=== PATIENT | male | born 1960 | race Caucasian/White ===

== ENCOUNTER → 2016-09-25 | Outpatient (CLI) | payer MEDICAID, OTHER ==
--- NOTE | 2016-09-25 09:25 | REP ---
Cervical spine age views: There are no comparisons. There is advanced degenerative disc disease at C 03/04, 04/05, and 05/06. There is moderate degenerative disc disease at C6-7. Vertebral body heights and alignment are normal. Prevertebral soft tissues are normal. The facets are normally aligned. There is no listhesis on flexion or extension. The odontoid is obscured by dentition on the odontoid views. There is mild foraminal encroachment from uncinate spurring bilaterally from C3 to C6, likely a consequence of the degenerative disc disease. Impression: Multilevel degenerative disc disease. There is mild bilateral foraminal encroachment from uncinate spurring at the levels of the degenerative disc disease. The odontoid is obscured by dilatation on the odontoid views. No listhesis on flexion or extension. Signed by Prakash Parry MD 09/25/2016 09:17 A
[2016-09-25 09:56] LABS: ALBUMIN 3.8 GM/DL (3.2-5.2); ALBUMIN/GLOBULIN RATIO 1.06 (1.00-1.93); ALKALINE PHOSPHATASE 76 U/L (45-117); ALT/SGPT 30 U/L (12-78); ANION GAP 8 MEQ/L (8-16); AST/SGOT 13 U/L (15-37); BILIRUBIN,TOTAL 0.9 MG/DL (0.2-1.0); BLOOD UREA NITROGEN 15 MG/DL (7-18); CALCIUM LEVEL 9.5 MG/DL (8.5-10.1); CARBON DIOXIDE LEVEL 29 MEQ/L (21-32); CHLORIDE LEVEL 99 MEQ/L (98-107); CHOLESTEROL LEVEL 181 MG/DL (<200); CREATININE FOR GFR 0.82 MG/DL (0.70-1.30); GLOMERULAR FILTRATION RATE > 60.0 (>56); GLUCOSE, FASTING 109 MG/DL (70-105); POTASSIUM SERUM 3.9 MEQ/L (3.5-5.1); SODIUM LEVEL 136 MEQ/L (136-145); TOTAL PROTEIN 7.4 GM/DL (6.4-8.2); TRIGLYCERIDES LEVEL 93 MG/DL (<150)
== END ==
LOC: M LAB 08:06
PROVIDERS: ATTEND Nurse Practitioner Family
DX: M99.01 Segmental and somatic dysfunction of cervical region (principal); I10 Essential (primary) hypertension; M50.31 Other cervical disc degeneration, high cervical region; M50.321 Other cervical disc degeneration at C4-C5 level; M50.322 Other cervical disc degeneration at C5-C6 level; M50.323 Other cervical disc degeneration at C6-C7 level

== ENCOUNTER → 2019-05-16 | Outpatient (CLI) | payer OTHER, MEDICAID ==
--- NOTE | 2019-05-16 10:44 | REP ---
Right hand series: Five views. History: Injury of the right hand. Findings: There is an obliquely oriented fracture of the distal diaphysis of the fifth metacarpal with a approximately 4 mm of override. There is associated soft-tissue swelling. There is moderate osteoarthritis at the first carpometacarpal articulation. Moderate osteoarthritis is seen in the index long and small finger DIP joints as well. Impression: Obliquely oriented overriding fracture of the fifth metacarpal with associated swelling. Osteoarthritic changes. Electronically Signed by Dev Almonte MD 05/16/2019 10:36 A
== END ==
LOC: M LRY 10:15
PROVIDERS: ATTEND Physician Assistant
DX: S62.306A Unspecified fracture of fifth metacarpal bone, right hand, initial encounter for closed fracture (principal); X58.XXXA Exposure to other specified factors, initial encounter; Y92.9 Unspecified place or not applicable; Y93.9 Activity, unspecified; Y99.9 Unspecified external cause status

== ENCOUNTER 2020-05-07 09:07 | Emergency (ER) | payer MEDICAID, OTHER ==
[~2020-05-07] VITALS: Ht 190.5 cm; Wt 94.5 kg
--- NOTE | 2020-05-07 09:40 | REP ---
INDICATION: CVA - Nursing interventions must not delay CT COMPARISON: None. TECHNIQUE: Axial noncontrast images from the skull base to the thoracic inlet with coronal reformations. This CT examination was performed using the following dose reduction techniques: Automated exposure control, adjustment of mA and/or kv according to the patient's size, and use of iterative reconstruction technique. FINDINGS: Age-related atrophy and microvascular ischemic changes are appreciated. The ventricles and sulci are symmetric. Dejesus-white differentiation is maintained. There is no evidence for acute intracranial hemorrhage, mass/mass effect, pathology or infarction. No extra-axial fluid collection. Calvarium is intact. Paranasal sinuses and mastoid air cells are clear. IMPRESSION: Age related atrophy and microvascular ischemic changes. No acute intracranial hemorrhage, infarction, or mass/mass effect. <Electronically signed by Teo Irizarry > 05/07/20 [id number]
[2020-05-07 09:53] LABS: BASO % 0.2 % (0.0-1.0); EOS # 0.1 10^3/uL (0.0-0.5); EOS % 1.2 % (0.0-3.0); HEMOGLOBIN 15.7 g/dl (13.5-17.5); LYMPH % 23.8 % (24.0-44.0); MEAN CORPUSCULAR HEMOGLOBIN 29.2 pg (27.0-33.0); MEAN CORPUSCULAR HGB CONC 32.7 g/dl (32.0-36.5); MEAN CORPUSCULAR VOLUME 89.2 fl (80.0-96.0); MONO # 0.8 10^3/uL (0.0-0.8); MONO % 9.4 % (2.0-8.0); NEUTROPHILS # 5.4 10^3/uL (1.5-8.5); NEUTROPHILS % 65.2 % (36.0-66.0); PLATELET COUNT, AUTOMATED 411 10^3/uL (150-450); RED BLOOD COUNT 5.38 10^6/uL (4.30-6.10); WHITE BLOOD COUNT 8.4 10^3/uL (4.0-10.0)
[2020-05-07 10:04] LABS: INR 0.91; PROTHROMBIN TIME 12.4 SECONDS (12.5-14.3)
[2020-05-07] MEDS ORDERED: ATEN25TA PO (10:07)
[2020-05-07] MEDS ORDERED: HYDR-3490 PO (10:07)
[2020-05-07] MEDS ORDERED: AMLO1TAB25 PO ×2 (10:07)
[2020-05-07 10:25] LABS: BLOOD UREA NITROGEN 15 MG/DL (7-18); CALCIUM LEVEL 9.7 MG/DL (8.8-10.2); CARBON DIOXIDE LEVEL 30 MEQ/L (21-32); CHLORIDE LEVEL 103 MEQ/L (98-107); CK-MB VALUE MASS 4.2 NG/ML (<3.6); CPK CREATINE PHOSPHOKINASE 120 U/L (39-308); CREATININE FOR GFR 1.18 MG/DL (0.70-1.30); GLOMERULAR FILTRATION RATE > 60.0 (>49); GLUCOSE, FASTING 116 MG/DL (70-100); POTASSIUM SERUM 4.3 MEQ/L (3.5-5.1); SODIUM LEVEL 137 MEQ/L (136-145); TROPONIN I 0.98 NG/ML (< 0.10)
[2020-05-07 12:21] LABS: CK-MB VALUE MASS 3.8 NG/ML (<3.6); MB/CK RELATIVE INDEX 3.73 (< OR =4); TROPONIN I 0.83 NG/ML (< 0.10)
[2020-05-07 13:54] LABS: RSV AMPLIFICATION NEGATIVE (NEGATIVE)
[2020-05-07] MEDS ORDERED: MOM 30ML SUSPENSION UDC PO PRN (13:55)
[2020-05-07] MEDS ORDERED: ACETAMINOPHEN TAB 650MG DOSE (2X325MG) PO PRN (13:55)
[2020-05-07] MEDS ORDERED: ASPIRIN 325 MG TAB PO ONE (14:05)
--- NOTE | 2020-05-07 14:22 | IPNPDOC ---
Text Note Date of Service The patient was seen on 05/07/20. NOTE Went to ED to evaluate patient for admission for potential CVA after having pr esented with new facial droop and dysarthria this morning and found to have troponin I of 0.9 with no cardiac symptoms and head CT without any acute findings. He refused to be admitted and will sign out AMA from the ED and follow up with his PCP who will follow up the MRI/MRA he just had and has not been read yet. VS,Fishbone, I+O VS, Fishbone, I+O Laboratory Tests 05/07/20 09:41 Vital Signs Date Time Temp Pulse Resp B/P (MAP) Pulse Ox O2 Delivery O2 Flow Rate FiO2 05/07/20 12:45 119/79 (92) 05/07/20 12:38 64 16 97 Room Air 05/07/20 09:08 97.6 CHARLY PANDYA MD May 07, 2020 14:22
[2020-05-07 14:37] VITALS: BP 135/91
--- NOTE | 2020-05-07 14:45 | REP ---
INDICATION: cva - facial weakness/sensation loss. COMPARISON: Comparison is made with CT study of the brain from earlier today.. TECHNIQUE: Axial and sagittal imaging planes are utilized for T1 and T2-weighted scans. Sequences include spin-echo, fast spin echo, FLAIR, and diffusion weighted sequences. FINDINGS: No bony calvarial lesion is seen. Craniocervical junction and upper cervical cord are normal in appearance. There is no MR evidence of significant paranasal sinus disease. No intraorbital abnormality is seen. There is no evidence of intracranial hemorrhage. No mass or midline shift is observed. There is abnormal T2 hyperintensity in a multifocal distribution involving the right posterior frontal and parietal lobes. There is an area of increased STIR T2 signal intensity in the dejesus matter of the insula on the right as well. These areas demonstrate restricted diffusion on diffusion-weighted scans consistent with acute ischemia. This would be in the distribution of the right middle cerebral artery. Dejesus-white differentiation pattern is otherwise intact. No other abnormal T2 hyperintensity is seen. Minimal small vessel changes are noted. IMPRESSION: Multifocal areas of acute ischemia in the distribution of the right middle cerebral artery as above. No evidence of intracranial hemorrhage seen.. <Electronically signed by Titus Almonte > 05/07/20 [id number]
--- NOTE | 2020-05-07 14:46 | REP ---
INDICATION: cva - facial weakness/sensation loss. COMPARISON: None. TECHNIQUE: 3-D [id number] MR angiography of the brain is acquired in the usual fashion and maximal intensity projection images were generated in rotational format about the vertical and horizontal axes. In addition, source axial T1-weighted images are viewed in cine mode. FINDINGS: The distal vertebral arteries are patent, right dominant in size.. Basilar artery is a little tortuous but widely patent. The posterior cerebral and superior cerebellar vessels are normal and symmetric. The distal internal carotid arteries are unremarkable. Anterior and middle cerebral arteries appear intact. There is no visible poe aneurysm or arteriovenous malformation. IMPRESSION: Unremarkable MR angiography the brain. <Electronically signed by Titus Almonte > 05/07/20 [id number]
--- NOTE | 2020-05-07 15:59 | ECGEPIP ---
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
[2020-05-08] MEDS ORDERED: ENOXAPARIN 40MG/0.4ML SYRINGE (J1650 PER 10MG) SC SCH (09:00)
[2020-05-08 14:09] LABS: Lyme Disease IgG/IgM Antibodie <0.91 ISR (0.00-0.90); Lyme Disease IgM Ab Quantitati <0.80 index (0.00-0.79)
== END 2020-05-07 14:42 | disposition left against medical advice (07) ==
LOC: M ED 09:07 → M ED INP 13:53 → UNDOADMIN 13:53 → UNDODISIN 14:41
DX: R29.810 Facial weakness (principal)

== ENCOUNTER 2020-05-09 07:37 | Observation (INO) | payer OTHER ==
[~2020-05-09] VITALS: Ht 190.5 cm; Wt 88.3 kg
[~2020-05-09 07:37] MED LIST: AMLO1TAB25 PO; ATEN25TA PO; HYDR-3490 PO
[2020-05-09] MEDS ORDERED: ASPI81CH33 PO (07:48)
[2020-05-09 08:46] LABS: BASO % 0.4 % (0.0-1.0); EOS # 0.1 10^3/uL (0.0-0.5); EOS % 1.7 % (0.0-3.0); HEMOGLOBIN 16.7 g/dl (13.5-17.5); LYMPH % 26.5 % (24.0-44.0); MEAN CORPUSCULAR HEMOGLOBIN 28.6 pg (27.0-33.0); MEAN CORPUSCULAR HGB CONC 32.7 g/dl (32.0-36.5); MEAN CORPUSCULAR VOLUME 87.5 fl (80.0-96.0); MONO # 0.8 10^3/uL (0.0-0.8); MONO % 10.6 % (2.0-8.0); NEUTROPHILS # 4.5 10^3/uL (1.5-8.5); NEUTROPHILS % 60.5 % (36.0-66.0); PLATELET COUNT, AUTOMATED 459 10^3/uL (150-450); RED BLOOD COUNT 5.83 10^6/uL (4.30-6.10); WHITE BLOOD COUNT 7.5 10^3/uL (4.0-10.0)
--- NOTE | 2020-05-09 08:46 | REP ---
INDICATION: CVA - Nursing interventions must not delay CT COMPARISON: 05/07/2020 TECHNIQUE: Axial noncontrast images from the skull base to the thoracic inlet with coronal reformations. This CT examination was performed using the following dose reduction techniques: Automated exposure control, adjustment of mA and/or kv according to the patient's size, and use of iterative reconstruction technique. FINDINGS: Age-related atrophy and microvascular ischemic changes are appreciated. The ventricles and sulci are symmetric. Dejesus-white differentiation is maintained. There is no change from prior examination, and specifically no areas of hemorrhage, or increased edema/mass effect. No extra-axial fluid collection. Calvarium is intact. Paranasal sinuses and mastoid air cells are clear. IMPRESSION: 1. Age related atrophy and microvascular ischemic changes. 2. No acute intracranial hemorrhage, infarction, or mass/mass effect identified by CT and findings remain stable compared to 05/07/2020. The areas of acute infarction identified on MRI dated 05/07/2020 do not demonstrate progressive change/evolution by CT evaluation. <Electronically signed by Teo Irizarry > 05/09/20 0800
--- NOTE | 2020-05-09 08:59 | REP ---
INDICATION: CVA COMPARISON: None. TECHNIQUE: Portable AP view of the chest FINDINGS: The mediastinum and cardiac silhouette are within normal limits for portable technique. The lung thompson are clear without acute consolidation, effusion, or pneumothorax. Skeletal structures are intact. IMPRESSION: No acute cardiopulmonary process appreciated. <Electronically signed by Teo Irizarry > 05/09/20 2146
[2020-05-09 09:09] LABS: ALT/SGPT 30 U/L (12-78); BILIRUBIN,DIRECT 0.2 MG/DL (0.0-0.2); BLOOD UREA NITROGEN 17 MG/DL (7-18); CALCIUM LEVEL 9.7 MG/DL (8.8-10.2); CARBON DIOXIDE LEVEL 25 MEQ/L (21-32); CHLORIDE LEVEL 104 MEQ/L (98-107); CPK CREATINE PHOSPHOKINASE 91 U/L (39-308); CREATININE FOR GFR 1.19 MG/DL (0.70-1.30); GLOMERULAR FILTRATION RATE > 60.0 (>49); GLUCOSE, FASTING 122 MG/DL (70-100); POTASSIUM SERUM 4.3 MEQ/L (3.5-5.1); SODIUM LEVEL 137 MEQ/L (136-145); TOTAL PROTEIN 8.2 GM/DL (6.4-8.2); TROPONIN I 0.42 NG/ML (< 0.10)
[2020-05-09 09:19] LABS: INR 0.95; PROTHROMBIN TIME 12.9 SECONDS (12.5-14.3)
[2020-05-09 09:20] LABS: PARTIAL THROMBOPLASTIN TIME 27.2 SECONDS (24.2-38.5)
[2020-05-09 10:19] LABS: RSV AMPLIFICATION NEGATIVE (NEGATIVE)
[2020-05-09] MEDS ORDERED: ASPI-161 PO (10:46)
[2020-05-09 11:23] LABS: CHOLESTEROL LEVEL 204 MG/DL (<200); HDL CHOLESTEROL 50 MG/DL (>40); LDL CHOLESTEROL 131 MG/DL (<100); NON-HDL-C 154 MG/DL; TRIGLYCERIDES LEVEL 117 MG/DL (<150)
[2020-05-09 11:40] VITALS: BP 126/80
--- NOTE | 2020-05-09 12:34 | HPEPDOC ---
General Date of Admission May 09, 2020 at 07:38 Date of Service: May 09, 2020 Chief Complaint The patient is a 59-year-old male admitted with a reason for visit of Atrial Fibrillation and CVA Source: Patient History of Present Illness Mr. Biggs is a 59-year-old male with hypertension and arthritis who presents with dysarthria and left facial droop. Symptoms started initially on 05/07/2020. He woke up in the morning around 5:30 AM. He saw his boss who noted that he had fac ial droop and slurred speech. His boss to come to the ED. While in the ED, he had an MRI which demonstrated multifocal areas of acute ischemia in the right MCA. His MR angiogram of head was negative. CT head was also negative for hemorrhage. EKG at that time was also negative for A. fib and was normal sinus rhythm with heart rate in the 60s. In addition, his troponin was 0.9 which down trended to 0.8. He left AMA incident being admitted. He was called back on 05/08/2020 to return to the ED. He returned to the ED on 05/09/2020. Since then, his symptoms have improved but still present. He still has dysarthria. He still bites is tongue and lip when chewing occasionally. Otherwise he tells me that he is able to walk without problems. In the ED, they repeated the EKG which demonstrated atrial fibrillation. His heart rate ranges between 80-110. When I saw him, despite the dysarthria and left facial droop, his cranial nerves are grossly intact and his muscle strength was 5 out of 5. His chronic paresthesias in his hands. He feels like there is a tight glove over his hands. He does have carpal tunnel syndrome. Examining his fingers, his PIP and DIP appears swollen and inflamed. He does have some lateral deviation of his fingers. He tells me that his parents had crooked hands from arthritis. Denies knowledge of having rheumatoid arthritis, by suspect that he may have rheumatoid arthritis. Otherwise, I reached out to neurology, Dr. Velasco, and discussed the case with him. We'll start patient on anticoagulation today. Patient will be admitted for new onset atrial fibrillation and to complete the workup for CVA. Home Medications Scheduled Amlodipine Besylate (Amlodipine Besylate) 10 Mg Tablet, 10 MG PO DAILY, (Reported) Aspirin (Aspirin EC) 81 Mg Tablet.dr, 81 MG PO DAILY, (Reported) Atenolol (Atenolol) 25 Mg Tablet, 25 MG PO DAILY, (Reported) Hydrochlorothiazide (Hydrochlorothiazide) 25 Mg Tablet, 25 MG PO Q3RD, (Reported) Allergies Coded Allergies: No Known Allergies (Unverified , 05/07/20) Past Medical History Medical History 1. Arthritis 2. Patient reports a history of carpal tunnel bilaterally 3. Degenerative disc disease 4. Right hand fracture and left rib fracture Surgical History 1. Hernia repair Family History Father: History of DC in his 50s Mother: History of cancer Social History * Smoker: former Smoker (He smoked for about 6 years. Quit when he was 20 years old) Alcohol: occationally (About 2-3 beers a day. Last alcohol drink was Wednesday, May 06, 2020) Drugs: marijuana A-FIB/CHADSVASC A-FIB History Current/History of A-Fib/PAF?: Yes Current PO Anticoag Therapy: Yes Age/Risk Factor Scoring CHADSVASC: CHADSVASC Response (Comments) Value Age Risk Factor Age < 65 years old 0 Gender Risk Factor Male 0 Hx of CHF No 0 Hx of HTN Yes 1 Hx of Stroke/TIA/or VTE Yes 2 Hx of Diabetes No 0 Hx of Vascular Disease No 0 Total 3 Treatment Treatment ordered: Apixaban Review of Systems Constitutional: Denies: Chills, Fever Eyes: Denies: Vision change ENT: Denies: Sore Throat Skin: Denies: Rash Pulmonary: Denies: Dyspnea, Cough Cardiovascular: Reports: Chest Pain (sharp chest pain underneath ribs. Comes and goes) Gastrointestinal: Denies: Nausea, Abdominal Pain, Diarrhea Genitourinary: Denies: Dysuria Hematologic: Denies: Bruising Neurological: Reports: Other Symptoms (paresthesias is in hands bilaterally) Psych: Denies: Anxiety, Depression Physical Examination General Exam: Positive: Cooperative Eye Exam: Positive: EOMI; Negative: Sclera icteric ENT Exam: Positive: Atraumatic, Tongue Midline Neck Exam: Positive: Supple Chest Exam: Positive: Clear to auscultation; Negative: Rales, Rhonchi, Wheezing Heart Exam: Positive: Tachycardic, Irregular Rhythm Extremity Exam: Negative: Edema Neuro Exam: Negative: Normal Speech (Slurred speech) Psych Exam: Positive: Mental status NL, Mood NL Vital Signs Vital Signs Date Time Temp Pulse Resp B/P (MAP) Pulse Ox O2 Delivery O2 Flow Rate FiO2 05/09/20 11:40 97.4 91 18 126/80 (95) 99 Room Air Laboratory Data Labs 24H Laboratory Tests 2 05/09/20 08:20: Immature Granulocyte % (Auto) 0.3, Neutrophils (%) (Auto) 60.5, Lymphocytes (%) (Auto) 26.5, Monocytes (%) (Auto) 10.6H, Eosinophils (%) (Auto) 1.7, Basophils (%) (Auto) 0.4, Neutrophils # (Auto) 4.5, Lymphocytes # (Auto) 2.0, Monocytes # (Auto) 0.8, Eosinophils # (Auto) 0.1, Basophils # (Auto) 0.0, Nucleated Red Blood Cells % (auto) 0.0, Prothrombin Time 12.9, Prothromb Time International Ratio 0.95, Activated Partial Thromboplast Time 27.2, Anion Gap 8, Glomerular Filtration Rate > 60.0, Calcium Level 9.7, Total Bilirubin 1.0, Direct Bilirubin 0.2, Aspartate Amino Transf (AST/SGOT) 16, Alanine Aminotransferase (ALT/SGPT) 30, Alkaline Phosphatase 92, Total Creatine Kinase 91, Creatine Kinase MB 2.0, Creatine Kinase MB Relative Index 2.20, Troponin I 0.42#H, Total Protein 8.2, Albumin 4.0, Albumin/Globulin Ratio 1.0, Triglycerides Level 117, Total Cholesterol 204H, LDL Cholesterol 131H, Non-HDL Cholesterol (LDL + VLDL) 154, Total HDL Cholesterol 50, Cholesterol/HDL Ratio 4.080 05/09/20 08:29: Coronavirus (COVID-19)(PCR) NEGATIVE, Influenza Type A (RT-PCR) NEGATIVE, Influenza Type B (RT-PCR) NEGATIVE, Respiratory Syncytial Virus (PCR) NEGATIVE CBC/BMP Laboratory Tests 05/09/20 08:20 Assessment/Plan Mr. Biggs is a 59-year-old male with hypertension and arthritis who presents with dysarthria and left facial droop and found to have a new onset atrial fibrillation. His right multifocal MCA ischemic stroke is most likely from his atrial fibrillation. Discussed case with neurology, will start patient on anticoagulation today. We'll also continue his aspirin and started him on a statin. Otherwise, we'll start patient on rate control medication for his new onset atrial fibrillation. Pending results from echocardiogram and carotid ultrasounds. Plan / VTE VTE Prophylaxis Ordered?: Yes Plan Plan 1. Acute multifocal right MCA stroke Manifested as dysarthria and left-sided facial droop Secondary to atrial fibrillation Continue aspirin Start statin and oral anticoagulation MR angiogram of head is negative. Pending echocardiogram with bubble study and ultrasound carotids Ordered PT and speech therapy. Speech therapy for his dysarthria and biting of her lip and tongue Ordered for lipid panel and HbA1c 2. New-onset atrial fibrillation Pending echocardiogram We'll initiate rate control with metoprolol titrate. We will hold atenolol and hydrochlorothiazide so we may be able to go up on metoprolol as needed Start anticoagulation with apixaban Pending TSH Troponin have been downtrending from 0.9 to 0.42 3. Hypertension Patient is on amlodipine, atenolol, and hydrochlorothiazide at home Blood pressure is very well controlled We will stop Atenolol and hydrochlorothiazide. We will decrease amlodipine from 10 mg once a day to 5 mg once a day. We will start Lopressor. By changing other blood pressure medications, we will have room on increasing Lopressor as needed 4. Arthritis of the hands bilaterally Patient has swelling of his DIP and PIP bilaterally. Parents had history of arthritis with hand deformities Patient may have rheumatoid arthritis. We'll order rheumatoid factor and anti- CCP. We'll order x-ray of hands bilaterally as well 5. DVT prophylaxis On apixaban NATHAN BRO DO May 09, 2020 12:18
[2020-05-09] MEDS ORDERED: ELIQ5TAB PO (12:37)
[2020-05-09] MEDS: METOPROLOL TART 25 MG TABLET PO SCH ×2 (12:54→20:55)
[2020-05-09] MEDS: APIXABAN 5 MG TAB (ELIQUIS) PO SCH ×2 (12:54→20:45)
[2020-05-09 13:17] LABS: HEMOGLOBIN A1c 5.9 %
--- NOTE | 2020-05-09 13:54 | REP ---
INDICATION: R MCA stroke COMPARISON: None. TECHNIQUE: Real-time ultrasound evaluation and duplex Doppler interrogation of the extracranial carotid vasculature is performed. FINDINGS: There is mild plaquing and narrowing in both carotid bulbs extending into the internal and external carotid arteries. Luminal narrowing is less than 50%. There is no evidence of hemodynamically significant stenosis of either internal carotid artery. Normal flow velocities are seen. The vertebral arteries demonstrate normal direction of flow. There is biphasic waveform in the left vertebral artery suggesting possible early subclavian steal. RIGHT LEFT Peak systolic velocity ICA 56 cm/s 81 cm/s End diastolic velocity ICA 25 cm/s 33 cm/s Peak systolic velocity CCA 79 cm/s 72cm/s Peak systolic velocity ECA 76 cm/s 67 cm/s ICA/CCA ratio 0.71 1.3 IMPRESSION: Bilateral luminal narrowing of the internal carotid arteries less than 50%. No evidence of hemodynamically significant stenosis. Biphasic waveform left vertebral artery suggests possible early subclavian steal. <Electronically signed by Prakash Dejesus > 05/09/20 1181
--- NOTE | 2020-05-09 13:56 | REP ---
INDICATION: Pain, arthritis, RA vs OA? COMPARISON: None. TECHNIQUE: AP, lateral, bilateral oblique views right and left hand. FINDINGS: Left hand demonstrates generalized age-related changes along with advanced osteoarthritic findings primarily involving the 2nd and 5th distal interphalangeal joints with subchondral sclerosis, joint space obliteration, marginal spurring/Gull wing deformity. Moderate arthritic changes are also identified involving the 1st digit including carpometacarpal joint. No significant periarticular erosive changes, loose bodies or focal periarticular swelling. No evidence for acute or healed injury. Right hand demonstrates generalized age-related changes along with advanced osteoarthritic findings primarily involving the 2nd, 3rd and 5th distal interphalangeal joints with subchondral sclerosis, joint space obliteration, marginal spurring/Gull wing deformity. Advanced degenerative changes are also identified at the 1st carpometacarpal joint including subchondral sclerosis, joint space narrowing and subtle spurring. Moderate arthritic changes are also identified involving the 1st digit including carpometacarpal joint. No significant periarticular erosive changes, loose bodies or focal periarticular swelling. Evidence for old healed fracture involving the 5th metacarpal bone. IMPRESSION: Bilateral osteoarthritic degenerative changes. <Electronically signed by Teo Irizarry > 05/09/20 [id number]
[2020-05-09 14:00] VITALS: BP 121/82
[2020-05-09] MEDS ORDERED: ATORVASTATIN 20 MG TAB PO SCH (21:00)
[2020-05-09 22:00] VITALS: BP 125/84
--- NOTE | 2020-05-10 03:15 | ECGEPIP ---
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
[2020-05-10 06:00] VITALS: BP 119/90
[2020-05-10 06:50] LABS: HEMATOCRIT 48.7 % (42.0-52.0); HEMOGLOBIN 16.2 g/dl (13.5-17.5); MEAN CORPUSCULAR HEMOGLOBIN 29.5 pg (27.0-33.0); MEAN CORPUSCULAR HGB CONC 33.3 g/dl (32.0-36.5); MEAN CORPUSCULAR VOLUME 88.7 fl (80.0-96.0); PLATELET COUNT, AUTOMATED 453 10^3/uL (150-450); RED BLOOD COUNT 5.49 10^6/uL (4.30-6.10); WHITE BLOOD COUNT 7.2 10^3/uL (4.0-10.0)
[2020-05-10 07:07] LABS: BLOOD UREA NITROGEN 18 MG/DL (7-18); CALCIUM LEVEL 9.1 MG/DL (8.8-10.2); CARBON DIOXIDE LEVEL 27 MEQ/L (21-32); CHLORIDE LEVEL 106 MEQ/L (98-107); CREATININE FOR GFR 1.05 MG/DL (0.70-1.30); GLOMERULAR FILTRATION RATE > 60.0 (>49); GLUCOSE, FASTING 110 MG/DL (70-100); MAGNESIUM LEVEL 2.4 MG/DL (1.8-2.4); POTASSIUM SERUM 4.4 MEQ/L (3.5-5.1); RHEUMATOID FACTOR QUANT < 10.0 IU/ML (<15.0); SODIUM LEVEL 137 MEQ/L (136-145)
[2020-05-10 08:10] LABS: ERYTHROCYTE SEDIMENTATION RATE 5 mm/hr (0-20)
[2020-05-10] MEDS: APIXABAN 5 MG TAB (ELIQUIS) PO SCH (08:11)
[2020-05-10 08:13] VITALS: BP 124/96
[2020-05-10] MEDS ORDERED: METOPROLOL TART 50 MG TAB PO SCH (09:00)
[2020-05-10] MEDS ORDERED: amLODIPine 5 MG TAB PO SCH (09:00)
[2020-05-10] MEDS ORDERED: ASPIRIN 81MG ENTERIC TABLET PO SCH (09:00)
--- NOTE | 2020-05-10 11:24 | ECHO ---
DATE OF PROCEDURE: 05/09/2020 Age: 59 Gender: Male Height: 75 inches Weight: 205 pounds Body surface area: 2.22 m2 PATIENT LOCATION: Inpatient [address] [place] [address], Room 4226. REFERRING PHYSICIAN: George Castro DO. INDICATION: Cerebrovascular accident (CVA). MEASUREMENTS: 2D Measurements: RV 2.8 cm LV 3.8 cm Septum 1.1 cm Posterior wall 1.1 cm Aortic Root 3.6 cm LA 3.6 cm LVEF 65-75% Doppler Measurements: AV 1.03 m/s LVOT 0.86 m/s MV-E 57 Early mitral deceleration time 220 msec E prime medial 7.5, E prime lateral 10.4 PV 0.95 m/s Pulmonary artery acceleration time 110 msec PASP 32 mmHg IVC 1.4 cm COMMENTS: Underlying atrial fibrillation with adequately controlled ventricular response and no intraventricular conduction disturbance. Slightly technically challenging in light of the patients body habitus, but diagnostically useful information was still obtained. M-mode and two-dimensional echocardiography was performed with pulse, continuous wave, color flow, and tissue Doppler studies. Left ventricular wall thickness upper limits of normal with normal left ventricular cavity size and normal to hyperkinetic wall motion. Left atrial size upper limits of normal with currently normal estimated mean left atrial pressure (cannot comment on LV diastolic dysfunction with atrial fibrillation). Normal right heart chamber sizes and motion with pulmonary arterial pressure upper limits of normal to slightly increased. Normal IVC size and collapse against an elevated central venous pressure. Normal aortic dimensions. Marginally thickened aortic valvular cusp edges, but adequate cusp separation and no apparent insufficiency. Normal appearing mitral valve apparatus and function. Normal appearing tricuspid valve with very mild (physiologic) insufficiency. Could not define an intracardiac mass or pericardial effusion. MTDD
[2020-05-10] MEDS ORDERED: ATOR40TA75 PO (12:19)
[2020-05-10] MEDS ORDERED: LOPR1TAB6 PO (12:19)
[2020-05-10] MEDS ORDERED: AMLO1TAB24 PO (12:19)
--- NOTE | 2020-05-10 23:31 | DS.PDOC ---
Discharge Summary General Date of Admission May 09, 2020 at 07:38 Date of Discharge May 10, 2020 Attending Physician: NATHAN BRO DO Discharge Summary PROCEDURES PERFORMED DURING STAY: None ADMITTING DIAGNOSES: 1. Acute multifocal right MCA stroke 2. New onset atrial fibrillation 3. Hypertension 4. Arthritis of the hand bilaterally DISCHARGE DIAGNOSES: 1. Acute multifocal right MCA stroke 2. New onset atrial fibrillation 3. Hypertension 4. Arthritis of the hand bilaterally COMPLICATIONS/CHIEF COMPLAINT: Atrial Fibrillation Cva. HISTORY OF PRESENT ILLNESS: Mr. Biggs is a 59-year-old male with hypertension and arthritis who presents with dysarthria and left facial droop. Symptoms started initially on 05/07/2020. He woke up in the morning around 5:30 AM. He saw his boss who noted that he had facial droop and slurred speech. His boss to come to the ED. While in the ED, he had an MRI which demonstrated multifocal areas of acute ischemia in the right MCA. His MR angiogram of head was negative. CT head was also negative for hemorrhage. EKG at that time was also negative for A. fib and was normal sinus rhythm with heart rate in the 60s. In addition, his troponin was 0.9 which down trended to 0.8. He left A incident being admitted. He was called back on 05/08/2020 to return to the ED. He returned to the ED on 05/09/2020. Since then, his symptoms have improved but still present. He still has dysarthria. He still bites is tongue and lip when chewing occasionally. Otherwise he tells me that he is able to walk without problems. In the ED, they repeated the EKG which demonstrated atrial fibrillation. His heart rate ranges between 80-110. When I saw him, despite the dysarthria and left facial droop, his cranial nerves are grossly intact and his muscle strength was 5 out of 5. His chronic paresthesias in his hands. He feels like there is a tight glove over his hands. He does have carpal tunnel syndrome. Examining his fingers, his PIP and DIP appears swollen and inflamed. He does have some lateral deviation of his fingers. He tells me that his parents had crooked hands from arthritis. Denies knowledge of having rheumatoid arthritis, by suspect that he may have rheumatoid arthritis. Otherwise, I reached out to neurology, Dr. Velasco, and discussed the case with him. We'll start patient on anticoagulation today. Patient will be admitted for new onset atrial fibrillation and to complete the workup for CVA. HOSPITAL COURSE: No events overnight. This morning, his heart rate was elevated between 100 to 120, but he strained himself this morning. Increased Lopressor from 25mg BID to 50mg BID. Heart rate this afternoon improved to range from 70 to 100. Otherwise, in terms of arthritis work up, XR hand demonstrated osteoarthritic changes. Rheumatoid factor was negative. Anti-CCP still pending. Otherwise carotid US did not demonstrate stenosis. This morning, patient felt well. His dysarthria improved and his facial droop was not as severe. He felt ready for home and was subsequently discharged. DISCHARGE MEDICATIONS: Please see below. ALLERGIES: Please see below. PHYSICAL EXAMINATION ON DISCHARGE: VITAL SIGNS: Please see below. GENERAL: Comfortable, in no apparent distress HEENT: Head normocephalic, atraumatic NECK: Supple CARDIOVASCULAR EXAMINATION: Irregular but rate controlled RESPIRATORY EXAMINATION: Lungs clear to auscultation bilaterally ABDOMINAL EXAMINATION: Soft, non-tender, normal bowel sounds EXTREMITIES: No pitting edema bilaterally SKIN: Warm and dry NEUROLOGICAL EXAMINATION: Facial droop and slurred speech improved PSYCHIATRIC EXAMINATION: Normal mood and affect LABORATORY DATA: Please see below. IMAGING: Radiologist interpretation Hand XR Bilateral osteoarthritic degenerative changes. MRI Brain Multifocal areas of acute ischemia in the distribution of the right middle cerebral artery as above. No evidence of intracranial hemorrhage seen.. MRA Head Unremarkable MR angiography the brain. US Carotid Bilateral luminal narrowing of the internal carotid arteries less than 50%. No evidence of hemodynamically significant stenosis. Biphasic waveform left vertebral artery suggests possible early subclavian steal. PROGNOSIS: Good ACTIVITY: As tolerated. DIET: As tolerated DISCHARGE PLAN: Home DISPOSITION: 01 Home, Self-Care. DISCHARGE INSTRUCTIONS: 1. Follow up with PCP within 7 days 2. Discuss with your PCP about referral to cardiology for new onset atrial fibrillation 3. Measure your BP and HR daily ITEMS TO FOLLOWUP ON ON OUTPATIENT: 1. Echocardiogram DISCHARGE CONDITION: Stable. Total time spent on discharge planning, discharge summary, and medication reconciliation: 40 minutes Vital Signs/I&Os Vital Signs Date Time Temp Pulse Resp B/P (MAP) Pulse Ox O2 Delivery O2 Flow Rate FiO2 05/10/20 08:13 100 124/96 05/10/20 06:00 97.6 20 98 05/09/20 14:00 Room Air I&O- Last 24 Hours up to 6 AM 05/10/20 06:00 Intake Total 2140 ml Output Total 0 ml Balance 2140 ml Laboratory Data Labs 24H Laboratory Tests 2 05/10/20 06:12: Nucleated Red Blood Cells % (auto) 0.0, Erythrocyte Sedimentation Rate 5, Anion Gap 4L, Glomerular Filtration Rate > 60.0, Calcium Level 9.1, Magnesium Level 2.4, C-Reactive Protein, Quantitative 0.30, Rheumatoid Factor < 10.0 CBC/BMP Laboratory Tests 05/10/20 06:12 Discharge Medications Scheduled Amlodipine Besylate (Amlodipine Besylate) 5 Mg Tablet, 5 MG PO DAILY Apixaban (Eliquis) 5 Mg Tablet, 5 MG PO BID Aspirin (Aspirin EC) 81 Mg Tablet.dr, 81 MG PO DAILY, (Reported) Atorvastatin Calcium (Atorvastatin Calcium) 40 Mg Tablet, 40 MG PO QPM Metoprolol Tartrate (Lopressor) 50 Mg Tablet, 50 MG PO BID Allergies Coded Allergies: No Known Allergies (Unverified , 05/07/20) NATHAN BRO DO May 10, 2020 23:31
== END 2020-05-10 13:22 | disposition home or self-care (01) ==
LOC: M ED 07:37 → M ED INP 07:38 → ENRESERV 11:08 → M MSPAV 11:40
PROVIDERS: ADMIT Internal Medicine; ATTEND Internal Medicine
DX: I63.511 Cerebral infarction due to unspecified occlusion or stenosis of right middle cerebral artery (principal); I48.91 Unspecified atrial fibrillation; I10 Essential (primary) hypertension; M19.049 Primary osteoarthritis, unspecified hand; Z79.82 Long term (current) use of aspirin; Z79.899 Other long term (current) drug therapy; Z79.01 Long term (current) use of anticoagulants; Z87.891 Personal history of nicotine dependence

== ENCOUNTER → 2021-02-05 | Outpatient (CLI) | payer OTHER ==
[~2021-02-05] MED LIST changes: +AMLO1TAB24 PO; +ASPI-161 PO; +ASPI81CH33 PO; +ATOR40TA75 PO; +ELIQ5TAB PO; +LOPR1TAB6 PO
--- NOTE | 2021-02-05 15:43 | REP ---
INDICATION: ABN CHEST XRAY COMPARISON: None TECHNIQUE: Axial noncontrast images from the thoracic inlet to the upper abdomen with coronal and sagittal reformations. This CT examination was performed using the following dose reduction techniques: Automated exposure control, adjustment of mA and/or kv according to the patient's size, and use of iterative reconstruction technique. FINDINGS: Lung thompson demonstrate mild to moderate chronic interstitial and emphysematous changes. No acute consolidation, suspicious nodule or mass. No effusion. No pneumothorax. Tracheobronchial tree is patent. Nonspecific mediastinal lymph nodes measure up to approximately 12 mm short axis diameter in the anterior subcarinal space. Atherosclerotic changes to the thoracic aorta and coronary arteries noted without aortic aneurysm or cardiomegaly. No pericardial effusion. Bochdalek's hernia along the posterior left diaphragm with mesenteric fat insinuating at the left lung base. IMPRESSION: Chronic changes as noted above. No acute mediastinal or pleuroparenchymal process. <Electronically signed by Toe Irizarry > 02/05/21 [id number]
== END ==
LOC: M RAD 07:57
DX: R93.89 Abnormal findings on diagnostic imaging of other specified body structures (principal)

== ENCOUNTER → 2022-07-09 | Outpatient (CLI) | payer OTHER | LOC: M PAIN 08:00 | PROVIDERS: ATTEND Anesthesiology | DX: M96.1 Postlaminectomy syndrome, not elsewhere classified (principal); M54.12 Radiculopathy, cervical region; E78.5 Hyperlipidemia, unspecified; I10 Essential (primary) hypertension; Z86.73 Personal history of transient ischemic attack (TIA), and cerebral infarction without residual deficits; Z79.01 Long term (current) use of anticoagulants; Z79.82 Long term (current) use of aspirin; Z79.899 Other long term (current) drug therapy ==

== ENCOUNTER → 2022-10-11 | Outpatient (CLI) | payer OTHER ==
[2022-10-11 10:21] LABS: BLOOD UREA NITROGEN 13 MG/DL (9-23); CREATININE FOR GFR 1.01 MG/DL (0.70-1.30); GLOMERULAR FILTRATION RATE > 60.0 (>49)
== END ==
LOC: M LAB 09:19
PROVIDERS: ATTEND Anesthesiology
DX: M96.1 Postlaminectomy syndrome, not elsewhere classified (principal)

== ENCOUNTER → 2022-10-17 | Outpatient (CLI) | payer OTHER ==
[~2022-10-17] MED LIST changes: +PROHANCE 279.3MG/ML 15ML VIAL As Ordered ONE; +PROHANCE 279.3MG/ML 5ML VIAL As Ordered ONE
== END ==
LOC: M RAD 08:58
PROVIDERS: ATTEND Anesthesiology
DX: M96.1 Postlaminectomy syndrome, not elsewhere classified (principal)
CPT/HCPCS: 72156; A9576

== ENCOUNTER → 2022-10-27 | Outpatient (CLI) | payer OTHER ==
[~2022-10-27] MED LIST changes: -PROHANCE 279.3MG/ML 15ML VIAL As Ordered ONE; -PROHANCE 279.3MG/ML 5ML VIAL As Ordered ONE
== END ==
LOC: M PAIN 10:30
PROVIDERS: ATTEND Nurse Practitioner Family
DX: M96.1 Postlaminectomy syndrome, not elsewhere classified (principal); G89.29 Other chronic pain; E78.5 Hyperlipidemia, unspecified; I10 Essential (primary) hypertension; I48.91 Unspecified atrial fibrillation; Z86.73 Personal history of transient ischemic attack (TIA), and cerebral infarction without residual deficits; Z79.01 Long term (current) use of anticoagulants; Z79.82 Long term (current) use of aspirin; Z79.891 Long term (current) use of opiate analgesic; Z79.899 Other long term (current) drug therapy

== ENCOUNTER → 2023-04-13 | Outpatient (CLI) | payer OTHER | LOC: M PAIN 09:15 | PROVIDERS: ATTEND Nurse Practitioner Family | DX: M96.1 Postlaminectomy syndrome, not elsewhere classified (principal); G89.29 Other chronic pain; M54.2 Cervicalgia; E78.5 Hyperlipidemia, unspecified; I10 Essential (primary) hypertension; I48.91 Unspecified atrial fibrillation; Z86.73 Personal history of transient ischemic attack (TIA), and cerebral infarction without residual deficits; Z79.01 Long term (current) use of anticoagulants; Z79.82 Long term (current) use of aspirin; Z79.891 Long term (current) use of opiate analgesic; Z79.899 Other long term (current) drug therapy ==

== ENCOUNTER → 2023-08-10 | Outpatient (CLI) | payer OTHER ==
[~2023-08-10] MED LIST changes: -ASPI-161 PO; +ASPI-615 PO
== END ==
LOC: M WUC 11:09
PROVIDERS: ATTEND Nurse Practitioner Family
DX: R05.9 Cough, unspecified (principal); J44.1 Chronic obstructive pulmonary disease with (acute) exacerbation

== ENCOUNTER → 2024-01-04 | Outpatient (CLI) | payer OTHER | LOC: M PLAIMG 07:43 | PROVIDERS: ATTEND Internal Medicine Pulmonary Disease | DX: R06.02 Shortness of breath (principal); J98.11 Atelectasis ==

== ENCOUNTER → 2024-09-06 | Outpatient (CLI) | payer MEDICARE, MEDICAID ==
[2024-09-06 11:05] LABS: VITAMIN B12 LEVEL 327.0 PG/ML (211-911)
[2024-09-07 10:05] LABS: T P ELECTROPHORESIS SO 6.9 g/dL (6.1-8.1)
[2024-09-09 08:44] LABS: ALBUMIN SPEP 3.9 g/dL (3.8-4.8); ALPHA-1-GLOBULINS SO 0.3 g/dL (0.2-0.3); ALPHA-2-GLOBULINS SO 0.7 g/dL (0.5-0.9); BETA 2 GLOBULIN 0.5 g/dL (0.2-0.5); BETA-GLOBULIN SO 0.4 g/dL (0.4-0.6); GAMMA GLOBULINS SO 1.0 g/dL (0.8-1.7)
[2024-09-09 17:32] LABS: VITAMIN E(ALPHA TOCOPHEROL) 8.5 mg/L (5.7-19.9); VITAMIN E(GAMMA TOCOPHEROL) 1.2 mg/L (<=4.3)
[2024-09-11 14:28] LABS: VITAMIN B1 LEVEL WHOLE BLOOD 141 nmol/L (78-185)
[2024-09-11 15:29] LABS: VITAMIN B6,PYRIDOXAL PHOSPHATE 6.6 ng/mL (2.1-21.7)
== END ==
LOC: M LAB 09:46
PROVIDERS: ATTEND Psychiatry & Neurology Neurology
DX: E53.8 Deficiency of other specified B group vitamins (principal)